=== PATIENT | female | born 1970 | race Caucasian/White ===

== ENCOUNTER 2020-07-25 00:06 | Emergency (ER) | payer MEDICAID ==
[~2020-07-25] VITALS: Ht 157.5 cm; Wt 68.0 kg
[2020-07-25] MEDS ORDERED: FAMOTIDINE 20MG TABLET PO ONE (01:00)
[2020-07-25] MEDS ORDERED: DIPHENHYDRAMINE 25MG CAPSULE PO ONE (01:00)
[2020-07-25] MEDS ORDERED: ONDANSETRON 4MG ODT PO ONE (01:00)
[2020-07-25 02:55] VITALS: BP 139/84
== END 2020-07-25 02:56 | disposition home or self-care (01) ==
LOC: ER 00:06
DX: T78.1XXA Other adverse food reactions, not elsewhere classified, initial encounter (principal); L29.9 Pruritus, unspecified; T78.49XA Other allergy, initial encounter; I10 Essential (primary) hypertension; X58.XXXA Exposure to other specified factors, initial encounter
CPT/HCPCS: 93005; 99284; Q0162; Q0163